=== PATIENT | male | born 1975 | race Caucasian/White ===

== ENCOUNTER 2017-06-13 19:06 | Emergency (ER) | payer OTHER ==
--- NOTE | 2017-06-13 19:31 | EDM.PDOC ---
ED HPI GENERAL MEDICAL PROBLEM - General Chief Complaint: Skin Complaint Stated Complaint: BITE RT HAND Time Seen by Provider: 06/13/17 19:31 Source of Information: Reports: Patient History Limitations: Reports: No Limitations - History of Present Illness INITIAL COMMENTS - FREE TEXT/NARRATIVE: HISTORY AND PHYSICAL: History of present illness: Shouldn't is a 41-year-old male who presents to the emergency room today with complaints of a "spider bite" to the left medial index finger at the MCP joint. Patient states that the area initially started out as red and itchy and although he did not see a specific insect bite him he said he didn't see spiders around the area earlier. After scratching and itching it did create a blister which he was able to pop intake get serosanguineous drainage out from it. Denies any fever or chills at this time. Denies any chest pain or shortness of breath. In any [id number] products. Reports pain is manageable just that it pulsates when he bumps it. Review of systems: As per history of present illness and below otherwise all systems reviewed and negative. Past medical history: As per history of present illness and as reviewed below otherwise noncontributory. Surgical history: As per history of present illness and as reviewed below otherwise noncontributory. Social history: No reported history of drug or alcohol abuse. Family history: As per history of present illness and as reviewed below otherwise noncontributory. Physical exam: HEENT: Atraumatic, normocephalic, pupils reactive, negative for conjunctival pallor or scleral icterus, mucous membranes moist, throat clear, neck supple, nontender, trachea midline. Lungs: Clear to auscultation, breath sounds equal bilaterally, chest nontender. Heart: S1S2, regular, negative for clicks, rubs, or JVD. Abdomen: Soft, nondistended, nontender. Negative for masses or hepatosplenomegaly. Negative for costovertebral tenderness. Pelvis: Stable nontender. Genitourinary: Deferred. Rectal: Deferred. Skin: A circular area of redness with a central blister that has popped in the middle that is draining serosanguineous fluid the area of redness is approximately half a centimeter diameter with the area of redness surrounds it being approximately 2 cm in diameter. Patient is able to flex and extend at the involved knuckle Extremities: Atraumatic, negative for cords or calf pain. Neurovascular unremarkable. Neuro: Awake, alert, oriented. Cranial nerves II through XII unremarkable. Cerebellum unremarkable. Motor and sensory unremarkable throughout. Exam nonfocal. Diagnostics: [] Therapeutics: Ice Impression: Cellulitis Plan: 1. Please take the Keflex as prescribed. You may take Tylenol and/or ibuprofen as needed for pain. 2. As we discussed please monitor for worsening signs of infection. Watch the area of redness, fever, chills or pain at the joint. If the symptoms worsen please return to the emergency room. 3. Follow up with your primary care provider in the next 1-2 days. Return to the ED as needed as discussed Definitive disposition and diagnosis as appropriate pending reevaluation and review of above. Duration: Day(s): (2) Location: Reports: Upper Extremity, Left Right 2-Index finger Pain Score (Numeric/FACES): 4 - Related Data Allergies Allergy/AdvReac Type Severity Reaction Status Date / Time No Known Allergies Allergy Verified 06/13/17 19:16 Home Meds: Home Meds . [No Known Home Meds] 06/13/17 [History] Social & Family History - Tobacco Use Smoking Status *Q: Current Every Day Smoker Years of Tobacco use: 20 Packs/Tins Daily: 1 - Caffeine Use Caffeine Use: Reports: Tea - Recreational Drug Use Recreational Drug Use: No ED ROS GENERAL - Review of Systems Review Of Systems: ROS reveals no pertinent complaints other than HPI. ED EXAM, SKIN/RASH Exam: See Below (See dictation) Course - Vital Signs Last Recorded V/S: Last Vital Signs Temp 36.7 C 06/13/17 19:09 Pulse 70 06/13/17 19:09 Resp 14 06/13/17 19:09 BP 140/80 06/13/17 19:09 Pulse Ox 96 06/13/17 19:09 Departure - Departure Time of Disposition: 19:38 Disposition: Home, Self-Care 01 Clinical Impression: Cellulitis Qualifiers: Site of cellulitis: extremity Site of cellulitis of extremity: upper extremity Laterality: left Qualified Code(s): L03.114 - Cellulitis of left upper limb - Discharge Information Referrals: PCP,None [Primary Care Provider] - Additional Instructions: My general discharge The following information is given to patients seen in the emergency department who are being discharged to home. This information is to outline your options for follow-up care. We provide all patients seen in our emergency department with a follow-up referral. The need for follow-up, as well as the timing and circumstances, are variable depending upon the specifics of your emergency department visit. If you don't have a primary care physician on staff, we will provide you with a referral. We always advise you to contact your personal physician following an emergency department visit to inform them of the circumstance of the visit and for follow-up with them and/or the need for any referrals to a consulting specialist. The emergency department will also refer you to a specialist when appropriate. This referral assures that you have the opportunity for follow-up care with a specialist. All of these measure are taken in an effort to provide you with optimal care, which includes your follow-up. Under all circumstances we always encourage you to contact your private physician who remains a resource for coordinating your care. When calling for follow-up care, please make the office aware that this follow-up is from your recent emergency room visit. If for any reason you are refused follow-up, please contact the [facility] at and asked to speak to the emergency department charge nurse. [facility] [address] [place] [id number] 1. Please take the Keflex as prescribed. You may take Tylenol and/or ibuprofen as needed for pain. 2. As we discussed please monitor for worsening signs of infection. Watch the area of redness, fever, chills or pain at the joint. If the symptoms worsen please return to the emergency room. 3. Follow up with your primary care provider in the next 1-2 days. Return to the ED as needed as discussed
== END 2017-06-13 19:46 | disposition home or self-care (01) ==
LOC: MW.ED 19:06
DX: L03.114 Cellulitis of left upper limb (principal); F17.210 Nicotine dependence, cigarettes, uncomplicated
CPT/HCPCS: 99282